=== PATIENT | female | born 1995 | race Caucasian/White ===

== ENCOUNTER → 2017-01-12 | Outpatient (REF) | payer BC | LOC: M SFHCLERA 10:24 | PROVIDERS: ATTEND Physician Assistant | DX: J02.9 Acute pharyngitis, unspecified (principal) ==

== ENCOUNTER → 2017-01-21 | Outpatient (REF) | payer BC | LOC: M SFHCWAGY 11:15 | PROVIDERS: ATTEND Nurse Practitioner Family | DX: Z11.3 Encounter for screening for infections with a predominantly sexual mode of transmission (principal); Z12.4 Encounter for screening for malignant neoplasm of cervix; R87.612 Low grade squamous intraepithelial lesion on cytologic smear of cervix (LGSIL) | CPT/HCPCS: 87491; 87591; G0123 ==

== ENCOUNTER → 2017-03-21 | Outpatient (CLI) | payer BC ==
--- NOTE | 2017-03-25 20:21 | SLEEPHOME ---
DATE OF PROCEDURE: 03/21/2017 ORDERED BY: Lindy Augustin Diagnostic home sleep testing was performed due to concern for the obstructive sleep apnea syndrome. For testing, a NOX-T3 respiratory monitoring device was used. Continuous record was made of pulse, oxygen saturation, air flow, chest and abdominal strain and body position. 11 hours and 59 minutes of data were reviewed. There were 8 hours and 51 minutes marked as time in bed. During the interval marked time in bed, there were only 24 respiratory events identified of 10 seconds in duration or greater for a respiratory event index within normal limits at 2.7. The events were associated with the prone posture more frequently. Baseline pulse rate was 64 beats per minute. Pulse rate ranged 48 to 137. Baseline saturation 95%. Lowest oxygen saturation 90%. Testing was performed in both the supine and nonsupine positions. IMPRESSION: Normal diagnostic home sleep testing with minimal respiratory events identified.
== END ==
LOC: M SLEEP HO 03-15 10:55
PROVIDERS: ATTEND Nurse Practitioner Adult Health
DX: Z03.89 Encounter for observation for other suspected diseases and conditions ruled out (principal); G47.30 Sleep apnea, unspecified

== ENCOUNTER → 2017-05-14 | Outpatient (REF) | payer BC | LOC: M LAB REF 09:13 | DX: J02.9 Acute pharyngitis, unspecified (principal) | CPT/HCPCS: 87081 ==

== ENCOUNTER → 2017-07-13 | Outpatient (REF) | payer BC | LOC: M LAB REF 11:15 | DX: N39.0 Urinary tract infection, site not specified (principal) | CPT/HCPCS: 87088; 87186 ==

== ENCOUNTER → 2018-01-27 | Outpatient (REF) | payer BC ==
[2018-02-01 14:20] LABS: HPV HYBRID CAPTURE II Positive (Negative)
== END ==
LOC: M SFHCWAGY 10:31
DX: Z12.4 Encounter for screening for malignant neoplasm of cervix (principal)
CPT/HCPCS: G0123

== ENCOUNTER → 2019-02-05 | Outpatient (REF) | payer BC ==
[2019-02-07 14:52] LABS: HPV HYBRID CAPTURE II Negative (Negative)
== END ==
LOC: M SFHCWAGY 10:43
PROVIDERS: ATTEND Nurse Practitioner Family
DX: Z12.4 Encounter for screening for malignant neoplasm of cervix (principal); B37.3 Candidiasis of vulva and vagina; R87.610 Atypical squamous cells of undetermined significance on cytologic smear of cervix (ASC-US)
CPT/HCPCS: 87624; G0123

== ENCOUNTER → 2020-02-07 | Outpatient (REF) | payer BC | LOC: M PLALAB 14:18 | PROVIDERS: ATTEND Nurse Practitioner Family | DX: Z12.4 Encounter for screening for malignant neoplasm of cervix (principal) ==

== ENCOUNTER → 2020-03-10 | Outpatient (REF) | payer BC | LOC: M SFHCWAGY 12:46 | PROVIDERS: ATTEND Obstetrics & Gynecology | DX: R87.612 Low grade squamous intraepithelial lesion on cytologic smear of cervix (LGSIL) (principal) ==

== ENCOUNTER → 2021-01-20 | Outpatient (REF) | payer SELFPAY ==
[2021-01-20 17:58] LABS: APPEARANCE, URINE HAZY (CLEAR); BACTERIA, URINE AUTO 1+ (NEGATIVE); BILIRUBIN, URINE AUTO NEGATIVE (NEGATIVE); BLOOD, URINE BLOOD NEGATIVE (NEGATIVE); COLOR, URINE YELLOW (YELLOW); GLUCOSE, URINE (UA) AUTO NEGATIVE (NEGATIVE); KETONE, URINE AUTO NEGATIVE (NEGATIVE); LEUKOCYTE ESTERASE, URINE AUTO TRACE (NEGATIVE); MUCUS, URINE SMALL (NEGATIVE); NITRITE, URINE AUTO POSITIVE (NEGATIVE); PROTEIN, URINE AUTO NEGATIVE (NEGATIVE); RBC, URINE AUTO 0 /HPF (0-3); SPECIFIC GRAVITY URINE AUTO 1.018 (1.002-1.035); SQUAMOUS EPITHELIAL CELL UR AU 2 /HPF (0-6); UROBILINOGEN, URINE AUTO 0.2 mg/dL (0.0-2.0); WBC, URINE AUTO 3 /HPF (0-3)
== END ==
LOC: M LAB REF 17:22
PROVIDERS: ATTEND Physician Assistant Medical
DX: N39.0 Urinary tract infection, site not specified (principal)

== ENCOUNTER → 2021-04-01 | Outpatient (REF) | payer BC | LOC: M SFHCWAGY 17:18 | PROVIDERS: ATTEND Nurse Practitioner Women's Health | DX: Z12.4 Encounter for screening for malignant neoplasm of cervix (principal) | CPT/HCPCS: 87624; G0123 ==

== ENCOUNTER → 2021-10-15 | Outpatient (REF) | payer BC ==
[2021-10-15 19:14] LABS: HEMATOCRIT 38.8 % (36.0-47.0); MEAN CORPUSCULAR HEMOGLOBIN 30.5 pg (27.0-33.0); MEAN CORPUSCULAR HGB CONC 33.5 g/dl (32.0-36.5); MEAN CORPUSCULAR VOLUME 91.1 fl (80.0-96.0); PLATELET COUNT, AUTOMATED 337 10^3/uL (150-450); RED BLOOD COUNT 4.26 10^6/uL (4.00-5.40)
[2021-10-15 20:11] LABS: HEPATITIS C VIRUS ABY INDEX 0.1 INDEX (<0.8); HIV 1&2 SCREEN CENTAUR NEGATIVE (NEGATIVE)
[2021-10-15 21:04] LABS: GC DNA AMPLIFICATION NEGATIVE (NEGATIVE)
== END ==
LOC: M PLALAB 09:37
PROVIDERS: ATTEND Advanced Practice Midwife
DX: O99.211 Obesity complicating pregnancy, first trimester (principal); Z3A.00 Weeks of gestation of pregnancy not specified

== ENCOUNTER → 2021-10-20 | Outpatient (CLI) | payer BC | LOC: M PLALAB 09:43 | PROVIDERS: ATTEND Advanced Practice Midwife | DX: O99.211 Obesity complicating pregnancy, first trimester (principal); E66.9 Obesity, unspecified ==

== ENCOUNTER → 2021-11-17 | Outpatient (CLI) | payer BC | LOC: M WHC 07:54 | PROVIDERS: ATTEND Advanced Practice Midwife | DX: Z34.02 Encounter for supervision of normal first pregnancy, second trimester (principal); Z53.9 Procedure and treatment not carried out, unspecified reason ==

== ENCOUNTER → 2021-12-09 | Outpatient (CLI) | payer BC | LOC: M WHC 08:58 | PROVIDERS: ATTEND Advanced Practice Midwife | DX: Z34.02 Encounter for supervision of normal first pregnancy, second trimester (principal); Z36.89 Encounter for other specified antenatal screening; Z3A.20 20 weeks gestation of pregnancy ==

== ENCOUNTER → 2021-12-28 | Outpatient (CLI) | payer BC | LOC: M WHC 08:10 | PROVIDERS: ATTEND Obstetrics & Gynecology | DX: Z36.2 Encounter for other antenatal screening follow-up (principal); Z3A.24 24 weeks gestation of pregnancy ==

== ENCOUNTER → 2022-01-19 | Outpatient (CLI) | payer BC ==
[2022-01-19 13:42] LABS: HEMATOCRIT 33.4 % (36.0-47.0); HEMOGLOBIN 11.1 g/dl (12.0-15.5); MEAN CORPUSCULAR HEMOGLOBIN 31.4 pg (27.0-33.0); MEAN CORPUSCULAR HGB CONC 33.2 g/dl (32.0-36.5); MEAN CORPUSCULAR VOLUME 94.4 fl (80.0-96.0); PLATELET COUNT, AUTOMATED 344 10^3/uL (150-450); RED BLOOD COUNT 3.54 10^6/uL (4.00-5.40); WHITE BLOOD COUNT 11.2 10^3/uL (4.0-10.0)
[2022-01-19 15:59] LABS: GC DNA AMPLIFICATION NEGATIVE (NEGATIVE)
== END ==
LOC: M PLALAB 09:20
PROVIDERS: ATTEND Advanced Practice Midwife
DX: Z34.02 Encounter for supervision of normal first pregnancy, second trimester (principal)

== ENCOUNTER → 2022-01-26 | Outpatient (CLI) | payer BC | LOC: M WHC 09:40 | PROVIDERS: ATTEND Advanced Practice Midwife | DX: Z34.02 Encounter for supervision of normal first pregnancy, second trimester (principal); Z36.2 Encounter for other antenatal screening follow-up; Z3A.27 27 weeks gestation of pregnancy ==

== ENCOUNTER → 2022-03-25 | Outpatient (REF) | payer BC | LOC: M SFHCWAGY 16:56 | PROVIDERS: ATTEND Obstetrics & Gynecology | DX: O26.893 Other specified pregnancy related conditions, third trimester (principal) ==

== ENCOUNTER 2022-04-15 02:30 | Inpatient (IN) | payer BC ==
[2022-04-15] VITALS (35 sets, daily range): BP systolic 116–192; BP diastolic 58–102
[~2022-04-15] VITALS: Ht 160 cm; Wt 104.7 kg
[2022-04-15] MEDS ORDERED: OXYTOCIN INJ 10UNITS/ML 1ML VIAL IM PRN (03:35)
[2022-04-15] MEDS ORDERED: miSOPROStol 50MCG 1/2 TABLET PO ONE (03:35)
[2022-04-15] MEDS ORDERED: METHYLERGONOVINE MALEATE 0.2 MG/ML VIAL (J2210) IM PRN (03:35)
[2022-04-15] MEDS ORDERED: TRANEXAMIC ACID INJection 1,000 MG in NS 100 ML IV PRN (03:35)
[2022-04-15] MEDS ORDERED: CARBOPROST TROMETHAMINE 250 MCG/ML AMP IM PRN (03:35)
[2022-04-15] MEDS ORDERED: OXYTOCIN DRIP 30 UNITS in IV 1 EA IV PRN ×4 (03:35)
[2022-04-15] MEDS ORDERED: LIDOCAINE 1% MDV 20ML VIAL INFIL PRN (03:35)
[2022-04-15 04:22] LABS: HEMATOCRIT 34.9 % (36.0-47.0); MEAN CORPUSCULAR HEMOGLOBIN 30.9 pg (27.0-33.0); MEAN CORPUSCULAR HGB CONC 34.4 g/dl (32.0-36.5); MEAN CORPUSCULAR VOLUME 89.9 fl (80.0-96.0); PLATELET COUNT, AUTOMATED 296 10^3/uL (150-450); RED BLOOD COUNT 3.88 10^6/uL (4.00-5.40); WHITE BLOOD COUNT 13.6 10^3/uL (4.0-10.0)
[2022-04-15] MEDS ORDERED: EPIDURAL/PCA KEYS XX PRN (09:00)
[2022-04-15] MEDS ORDERED: LR 500 ML IV PRN (09:00)
[2022-04-15] MEDS ORDERED: NALOXONE INJ 0.4MG/1ML VIAL IV PRN ×3 (09:00→16:40)
[2022-04-15] MEDS ORDERED: diphenhydrAMINE 50MG/ML VIAL IV PRN ×2 (09:00→16:40)
[2022-04-15] MEDS ORDERED: ePHEDrine SULFATE 25 MG/5 ML(5MG/ML) SYRINGE IVP PRN (09:00)
[2022-04-15] MEDS ORDERED: FENTANYL/ROPIVACAINE/NACL BAG 100 ML EPIDURAL SCH (09:00)
[2022-04-15] MEDS ORDERED: ONDANSETRON 4MG 2ML VIAL IV PRN (09:00)
[2022-04-15] MEDS ORDERED: AZITHROMYCIN INJ 500 MG, VIAL MATE ADAPTER 1 EACH in NS 250 ML IV STA (15:06)
[2022-04-15] MEDS ORDERED: ceFAZolin SOD 2 GM in IV 1 EA IV ONE (15:10)
[2022-04-15] MEDS ORDERED: LIDOCAINE 2% W/EPINEPHRINE 20ML VIAL **PRES FREE As Ordered ONE (15:12)
[2022-04-15] MEDS ORDERED: BICITRA 30ML SOLN UDC As Ordered ONE (15:14)
[2022-04-15] MEDS ORDERED: ceFAZolin 2 GM/D5W 50 ML IV BAG As Ordered ONE (15:14)
[2022-04-15] MEDS ORDERED: OXYTOCIN 30 UNITS IN 0.9% NaCl 500ML IV BAG (J2590) As Ordered ONE ×2 (15:14→17:11)
[2022-04-15] MEDS ORDERED: BICITRA 30ML SOLN UDC PO ONE (15:15)
[2022-04-15] MEDS ORDERED: FOLI400T13 PO (15:29)
[2022-04-15] MEDS ORDERED: OMEP-173 PO (15:29)
[2022-04-15] MEDS ORDERED: PRENTAB9 PO (15:29)
[2022-04-15] MEDS ORDERED: ONDANSETRON 4MG 2ML VIAL As Ordered ONE (15:48)
[2022-04-15] MEDS ORDERED: KETOROLAC 60MG 2ML VIAL As Ordered ONE (15:48)
[2022-04-15] MEDS ORDERED: MORPHINE PRES-FREE INJ 10 MG/10 ML VIAL As Ordered ONE (15:49)
[2022-04-15 16:23] LABS: CORD GAS ABE A -1.4; CORD GAS ABE V -3.5; CORD GAS HCO3 A 26.4 MEQ/L; CORD GAS HCO3 V 21.6 MEQ/L; CORD GAS O2 SAT A 21.8 %; CORD GAS O2 SAT V 61.7 %; CORD GAS PCO2 A 56.2 mmHg; CORD GAS PCO2 V 39.5 mmHg; CORD GAS PH A 7.289 UNITS; CORD GAS PH V 7.356 UNITS; CORD GAS PO2 A 12.6 mmHg; CORD GAS PO2 V 23.5 mmHg; CORD GAS SBC A 21.3 MEQ/L; CORD GAS SBC V 20.6 MEQ/L; CORD GAS TCO2 A 28.1 MEQ/L; CORD GAS TCO2 V 22.8 MEQ/L
[2022-04-15] MEDS ORDERED: RHOGAM 300 MCG (1500 IU) INJ (J2790) IM SCH (16:25)
[2022-04-15] MEDS ORDERED: ONDANSETRON 4MG TAB PO PRN (16:25)
[2022-04-15] MEDS ORDERED: PERCOCET 5MG/325MG TAB PO PRN ×2 (16:25)
[2022-04-15] MEDS ORDERED: OXYTOCIN DRIP 30 UNITS in IV 1 EA IV SCH (16:25)
[2022-04-15] MEDS ORDERED: SIMETHICONE 80MG CHEW TAB PO PRN (16:25)
[2022-04-15] MEDS ORDERED: DOCUSATE SODIUM 100MG CAPSULE PO PRN (16:25)
[2022-04-15] MEDS ORDERED: **NOTE PATIENT COMMENT** MISC XX SCH (16:40)
[2022-04-15] MEDS ORDERED: METOCLOPRAMIDE INJ 10MG/2ML VIAL IV PRN (16:40)
[2022-04-15] MEDS: SLF 3 ML SYR IV SCH (17:00)
[2022-04-15] MEDS: KETOROLAC 30 MG/ML 1ML VIAL IV SCH (22:27)
[2022-04-15] MEDS: LR 1,000 ML IV SCH (22:28)
[2022-04-16] MEDS: SLF 3 ML SYR IV SCH ×2 (01:00→10:05)
[2022-04-16 02:00] VITALS: BP 129/65
[2022-04-16] MEDS: KETOROLAC 30 MG/ML 1ML VIAL IV SCH ×2 (04:12→08:58)
[2022-04-16] MEDS ORDERED: IBUP80TA PO (05:55)
[2022-04-16] MEDS ORDERED: OXYC1TAB23 PO (05:56)
[2022-04-16 06:00] VITALS: BP 118/53
[2022-04-16 07:05] LABS: HEMATOCRIT 29.9 % (36.0-47.0); HEMOGLOBIN 10.3 g/dl (12.0-15.5); MEAN CORPUSCULAR HEMOGLOBIN 31.6 pg (27.0-33.0); MEAN CORPUSCULAR HGB CONC 34.4 g/dl (32.0-36.5); MEAN CORPUSCULAR VOLUME 91.7 fl (80.0-96.0); PLATELET COUNT, AUTOMATED 230 10^3/uL (150-450); RED BLOOD COUNT 3.26 10^6/uL (4.00-5.40); WHITE BLOOD COUNT 14.9 10^3/uL (4.0-10.0)
[2022-04-16] MEDS: LR 1,000 ML IV SCH ×2 (07:24→08:25)
[2022-04-16] MEDS: PRENATAL VITAMINS CHEWABLE TABLET PO SCH (08:57)
[2022-04-16 10:00] VITALS: BP 107/58
[2022-04-16] MEDS: OMEPRAZOLE 20MG CAP PO SCH (10:05)
[2022-04-16 14:00] VITALS: BP 105/55
[2022-04-16] MEDS: IBUPROFEN 800 MG TAB PO SCH (17:05)
[2022-04-16 18:00] VITALS: BP 125/67
[2022-04-16 22:00] VITALS: BP 128/67
[2022-04-17] MEDS: IBUPROFEN 800 MG TAB PO SCH ×2 (01:13→09:17)
[2022-04-17 02:00] VITALS: BP 128/64
[2022-04-17 06:00] VITALS: BP 125/68
[2022-04-17] MEDS ORDERED: MEASLES,MUMPS,RUBELLA VACCINE INJ (MMR-II) (90707) SC.IMMUN ONE (09:00)
[2022-04-17] MEDS: OMEPRAZOLE 20MG CAP PO SCH (09:17)
[2022-04-17] MEDS: PRENATAL VITAMINS CHEWABLE TABLET PO SCH (09:17)
== END 2022-04-17 13:00 | disposition home or self-care (01) | DRG 540 ==
LOC: M LDO 02:30 → M LDI 03:31 → M OBS 17:50
PROVIDERS: ADMIT Advanced Practice Midwife; ATTEND Specialist
PROC: 10D00Z1 Extraction of Products of Conception, Low, Open Approach (ICD-10-PCS; principal; 2022-04-15 15:30)
DX: O42.02 Full-term premature rupture of membranes, onset of labor within 24 hours of rupture (principal); O77.0 Labor and delivery complicated by meconium in amniotic fluid; Z37.0 Single live birth; Z3A.38 38 weeks gestation of pregnancy; Z86.16 Personal history of COVID-19; O62.0 Primary inadequate contractions

== ENCOUNTER → 2022-12-22 | Outpatient (REF) | payer BC ==
[~2022-12-22] MED LIST: FOLI400T13 PO; IBUP80TA PO; OMEP-173 PO; OXYC1TAB23 PO; PRENTAB9 PO
== END ==
LOC: M SFHCWAGY 12:49
PROVIDERS: ATTEND Specialist
DX: Z12.4 Encounter for screening for malignant neoplasm of cervix (principal)
CPT/HCPCS: 87624; G0123

== ENCOUNTER → 2024-09-16 | Outpatient (REF) | payer BC | LOC: M LAB REF 19:58 | PROVIDERS: ATTEND Physician Assistant | DX: R30.0 Dysuria (principal) ==

== ENCOUNTER → 2025-05-08 | Outpatient (REF) | payer BC ==
[2025-05-11 11:42] LABS: HPV APTIMA Not Detected (Not Detected)
== END ==
LOC: M SFHCWAGY 13:08
PROVIDERS: ATTEND Specialist
DX: Z01.419 Encounter for gynecological examination (general) (routine) without abnormal findings (principal)
CPT/HCPCS: 87624; G0123

== ENCOUNTER → 2025-05-08 | Outpatient (CLI) | payer BC | LOC: M WHC 08:35 | PROVIDERS: ATTEND Surgery | DX: N61.1 Abscess of the breast and nipple (principal); Z80.3 Family history of malignant neoplasm of breast; Z91.89 Other specified personal risk factors, not elsewhere classified; R92.333 Mammographic heterogeneous density, bilateral breasts ==